=== PATIENT | male | born 1950 | race Caucasian/White ===

== ENCOUNTER 2024-07-22 06:14 | Observation (INO) | payer MEDICARE, BC, SELFPAY ==
[2024-07-22] VITALS (9 sets, daily range): BP systolic 104–133; BP diastolic 44–69; BMI 19.9
--- NOTE | 2024-07-22 04:44 | DOWNTIME ---
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 Downtime documentation of patient's care, including medication administrations, has been reconciled in the electronic record per guidelines. Refer to the
patient's paper chart under the miscellaneous tab to see printed paper medication records and downtime forms.
--- NOTE | 2024-07-22 04:50 | ED.GENMED ---
History of Present Illness
General
Chief Complaint: Breathing Problem
History of Present Illness
History of Present Illness:
TIME OF INITIAL ENCOUNTER: 2:15 AM
HPI: The patient comes in by ambulance from [facility]. He states he had some sort of aortic repair at another facility in April 2024. Prior to arrival, the patient started vomiting and then had shortness of breath. EMS was called and
found to be hypertensive and was in rapid atrial fibrillation. He was given 15 mg of Cardizem prior to arrival. He was reportedly hypoxic earlier and was placed on a nonrebreather prior to arrival.
EXAM:
GENERAL: The patient appears chronically ill
HEENT: Somewhat dry oral mucosa
CARDIOVASCULAR: No murmurs, tachycardic heart rate, regular rhythm, No chest wall tenderness
PULMONARY: Very mild respiratory distress, breath sounds are equally decreased
ABDOMEN: Soft with no peritoneal signs, no tenderness
NEUROLOGIC: There is decreased strength all extremities, no coordination deficits
PSYCHIATRIC: Mild cognitive impairment, reasonable insight and judgement
EXTREMITIES: Nontender, trace lower extremity edema, moves all extremities equally
SKIN: No rash, no lesions
NUMBER AND COMPLEXITY OF PROBLEMS ADDRESSED AT THE ENCOUNTER
� Chronic conditions affecting care: COPD
� Acute Exacerbation and/or Progression of Chronic Illness: This could be an acute exacerbation of chronic problem
� Differential Diagnosis includes: COPD exacerbation, viral syndrome, atrial fibrillation, pleural effusion
AMOUNT AND/OR COMPLEXITY OF DATA TO BE REVIEWED AND ANALYZED
� I performed an independent evaluation of and my interpretation is:
EKG: Sinus 103, normal axis
CT:
X-rays: I personally reviewed portable chest x-ray which shows chronic fibrotic changes with a small pleural effusion at the right base
Laboratory Studies: White count 16.2, hemoglobin 9.0, creatinine 0.6, TSH normal, lipase normal, troponin less than 0.012, BNP 326
Other:
� Review of other/old records: I reviewed the records from the nursing facility
� Clinical information was obtained by an independent historian: I spoke to EMS upon arrival
� Prescriptions/Medications Considered but not given: Considered antibiotics however the patient does not have any clear obvious signs of pneumonia at this time
� Further testing considered but not performed:
RISK OF COMPLICATIONS AND/OR MORBIDITY OR MORTALITY OF PATIENT MANAGEMENT
� Social determinants of health affecting care: Resides at [facility] for rehab
� Discussion with other providers: Hospitalist for admission
� Escalation of care including admission/observation vs risk of discharge considered: The patient was given IV Cardizem by EMS prior to arrival with heart rates in the 180s. Shortly after arrival heart rate in the low 100s. He
was taken off nonrebreather and room air sats are 96%. Patient was given a DuoNeb.
ANY OTHER UPDATES:
2:40 AM: After the patient was taken off oxygen and after he was on room air for a while, he did desat to about 88%. Will add Solu-Medrol.
4 AM: I spoke to family. Family tells me that the patient had been [place] for AAA repair then had immediate postop complications including bowel obstruction. He then transferred to [place] and only recently went to [place] about 5 days ago.
While at [place] he was treated for bowel obstruction and was found to have a small pleural effusion as well. Family states that he also was found to have fibrotic changes on chest imaging last admission
Phy Exam
Physical Exam
Physical Exam:
See HPI
Scores
Heart Failure Risk
Heart Failure Risk Score: Not Applicable
Course
Orders/Labs/Results
Orders:
Orders
07/22/24 02:30
Complete Blood Count/With Diff Routine
Comprehensive Metabolic Panel Routine
Lipase Routine
NT-proBNP Routine
TSH Reflex To Free T4 Routine
Troponin I Routine
*Critical Care Note
Total Time (30-74mins, 75-104mins- exclusive of procedures): Not Applicable
ED Attending Note
-
Portions of this chart may have been created with voice recognition software.� Occasional wrong word or��sound alike� substitutions may have occurred due to the inherent limitations of voice recognition software.
Discharge Plan
Departure
Referrals:
Christiano Dior MD [Family Provider] -
Discharge Date and Time
Print Language: SAMI
[2024-07-22 04:53] LABS: TSH Reflex To Free T4 4.69 uIU/ml (0.47-4.68)
[2024-07-22 04:54] LABS: ALT (SGPT) 20 U/L (0-50); AST (SGOT) 32 U/L (17-59); Alkaline Phosphatase 107 U/L (38-126); Blood Urea Nitrogen 15 mg/dl (9-20); Calcium 9.2 mg/dl (8.4-10.2); Carbon Dioxide 27 mmol/L (22-30); Chloride 96 mmol/L (98-107); Glucose 106 mg/dl (70-99); Lipase 32 U/L (23-300); NT-proBNP 326 pg/ml; Potassium 3.5 mmol/L (3.5-5.1); Sodium 138 mmol/L (135-145); Total Bilirubin 0.5 mg/dl (0.2-1.3); Troponin I < 0.012 ng/ml; eGFR > 60.00
[2024-07-22 04:58] LABS: % Basophils 0.5 % (0-2); % Eosinophils 0.6 % (0-6); % Immature Granulocytes 0.7 % (0-0.5); % Lymphocytes 8.1 % (20.5-51.1); % Monocytes 4.7 % (1.7-9.3); % Neutrophils 85.4 % (42.2-75.2); Absolute Basophils 0.1 10^3/uL (0-0.2); Absolute Eosinophils 0.1 10^3/uL (0-0.7); Absolute Immature Granulocytes 0.1 10^3/uL (0-0.05); Absolute Lymphocytes 1.3 10^3/uL (1.2-3.4); Absolute Monocytes 0.8 10^3/uL (0.1-0.6); Absolute Neutrophils 13.9 10^3/uL (1.4-6.5); Hematocrit 28.5 % (39.0-52.0); Mean Corp Hgb Conc. 31.6 g/dL (33.0-37.0); Mean Corpuscular Hgb 28.6 pg (27.0-31.0); Mean Corpuscular Volume 90.5 fL (80.0-94.0); Mean Platelet Volume 10.6 fL (7.4-10.4); Nucleated Red Blood Cells % 0 % (-); Platelet Count 297 10^3/uL (130-400); Red Blood Cell Count 3.15 10^6/uL (4.70-6.10); Red Cell Dist. Width 17.2 % (11.5-14.5); White Blood Cell Count 16.2 10^3/uL (4.8-10.8)
--- NOTE | 2024-07-22 05:03 | HPS.HSE ---
Family Physician
-
Family Physician: Christiano Dior
Chief Complaint
-
Shortness of breath
History of Present Illness
This is a 73-year-old male with past medical history of AAA and peripheral arterial disease, prior smoking and COPD not on home O2 will recently had a prolonged hospital course following surgery for AAA repair presents to the emergency department
from rehab for episode of shortness of breath and hypoxia to the low 80s complicated by supraventricular tachycardia thought to be A-fib at a rate of 180.
Patient was initially admitted to [facility] in May for AAA repair. He had a AAA repair with bilateral femoral endarterectomy. Following procedure the patient developed severe ileus and was hospitalized there for 5 weeks before
transferring to [place] for repair of the ileus. Patient had prolonged NG tube placement and received TPN. His course was complicated by vomiting and aspiration pneumonia. His hospital course was also complicated by episode of transient A-fib
RVR. Did resolve spontaneously and the patient was not placed on rate control medications or anticoagulation. He did end up getting a small bowel resection with reanastomosis. Was setting eventually transition to oral diet and was passing stool
and gas. He was discharged from [facility] about 6 days ago to rehab. He had no acute issues up until today. According to rehab the patient was vomiting then developed cough and shortness of breath. When EMS arrived the patient was
satting low 80% and was placed on nonrebreather. They found him to be in A-fib RVR at a rate of 180s. He was given 50 mg of Cardizem and he converted back to sinus rhythm upon arrival in ED.
In ED he was afebrile, oxygen saturation was 88% on room air and 95% on 2 L. Blood pressure was 90s over 70s. ECG with sinus tachycardia at [address] or T wave changes. Troponin was negative. BNP was 300. He had a white count of
16,000 hemoglobin 9 and plate count 297. He is BUN electrolytes and creatinine were within normal limits. Glucose was 106.
Chest x-ray shows chronic fibrotic changes and a small right pleural effusion. Patient received DuoNeb in the ED.
Medical History
Past Medical History
Past Medical History: Reports COPD
Additional Past Medical History:
PAD
AAA s/p repair
SBO
Past Surgical History: Reports Other (AAA open repair May 22 with bilateral femoral endarterectomy , small bowel resection and reanastomosis May 2024)
Social History
Tobacco: Former Smoker
Alcohol: None
Drug: None
Personal:
Living: Halfway
Employment: Retired
Family History
Family History: Not pertinent
Allergies / Home Medications
Allergies reflects when Allergies were last updated in [employer].
Home Medications with original date entered in [employer]
Allergy/Medication List:
Allergies
Allergy/AdvReac Type Severity Reaction Status Date / Time
No Known Allergies Allergy Unverified 07/22/24 04:51
Review of Systems
-
History Source: Patient and Family
Constitutional: Reports Fatigue
EENT: Reports No Symptoms
Respiratory: Reports No Symptoms
Cardiac: Reports No Symptoms
Abdomen/GI: Reports No Symptoms
: Reports No Symptoms
Musculoskeletal: Reports No Symptoms
Skin: Reports No Symptoms
Neurological: Reports No Symptoms
Endocrine: Reports No Symptoms
Hematologic/Lymphatic: Reports No Symptoms
Psych: Reports No Symptoms
Physical Exam
Vital Signs
Vital Signs
Pulse Resp Pulse Ox
90 22 99
07/22/24 04:49 07/22/24 04:49 07/22/24 05:02
Physical Exam
General: Well Developed, Well Nourished, No Apparent Distress and Comfortable
HEENT: NormoCephalic, Anicteric, Moist mucous membranes, Atraumatic and PERRLA
Respiratory: Clear and Decreased Breath Sounds
Cardiac: S1/S2 and Regular Rhythm
Breast: Deferred by me
GI: Soft, Non Tender, Non Distended and Normal Bowel Sounds
Rectal: Deferred by Provider
Genito-urinary: Deferred by me
Musculoskeletal: No Clubbing, No Cyanosis and No Edema
Skin: Warm
Neuro: AO x 3
Hematologic/Lymphatic: No Lymphadenopathy
Psych: Calm
Laboratory Results
-
07/22/24 02:30
07/22/24 02:30
Laboratory Results
Total Bilirubin 0.5 mg/dl (0.2-1.3) 07/22/24 02:30
AST 32 U/L (17-59) 07/22/24:30
ALT 20 U/L (0-50) 07/22/24 02:30
Alkaline Phosphatase 107 U/L (38-126) 07/22/24 02:30
Troponin I < 0.012 ng/ml 07/22/24 02:30
Lipase 32 U/L (23-300) 07/22/24 02:30
Data Reviewed
-
Diagnostic Radiology: Report Reviewed by me
Medical Tests (Nuc Med, Echo, EKG etc): Report Reviewed by me
Lab Data: Labs Reviewed by me
Old Records: Reviewed
Impression/Plan
-
IMPRESSION:
Patient with episode of vomiting, coughing sob and hypoxia associated with AFIB RVR to 180. No wheezing on my examination. Sinus at 103 on ECG w/o ischemia. Normal Trop and BNP and no volume overload. Suspect possible aspiration pneumonitis with
reactive airways in patient with known smoking related pulmonary fibrosis and COPD.
PLAN:
1. COPD exacerbation/aspiration pneumonitis - Rapid improvement and without current wheezing. Decreased bs on exam.
- admit to telemetry
- continue duonebs RTC for now and prn sob
- incentive spirometry
- hold off on steroids
- supplemental oxygen
- check procal, monitor for fever or worsening O2 requirements which may imply development of aspiration pneumonia
- no vomiting so far in ED, abdomen not tender. Will obtain abdominal xray to rule out obstruction.
2. AFIB RVR- Per EMS SVT, AFIB rate 180 chemically cardioverted with diltiazem 15mg iv, unsure duration. Patient had transient marcial-operative AFIB RVR. No AC or rate control as it was very brief.
- telemetry, trend enzymes
- echo
- tsh pending
- likely has paroxysmal afib, [id number] = 2. Candidate for AC or full dose aspirin, would consider Cardiology consult
- no indication for rate control currently
3. PAD
- continue aspirin and statin
4. h/o SBO and ileus
- senna, miralax daily for now
-prn supppository
DVT PPX - lovenox sq
Code status - DNR
[2024-07-22 05:20] LABS: Free T4 2.03 ng/dl (0.78-2.19)
--- NOTE | 2024-07-22 06:15 | DOWNTIME ---
There was a [employer] Line[employer] Downtime on 07/22/2024 from 0100 to 07/22/2024 at 0350. Downtime documentation of patient's care, including medication administrations, has been reconciled in the electronic record per guidelines. Refer to the
patient's paper chart under the miscellaneous tab to see printed paper medication records and downtime forms.
[2024-07-22] MEDS: DUONEB 3 ML INH ×4 (08:19→19:00)
[2024-07-22 08:58] LABS: Troponin I 0.015 ng/ml
[2024-07-22 09:03] LABS: Procalcitonin 0.12 ng/ml (0.0-0.25)
[2024-07-22] MEDS: MIRALAX 17 GRAMS PO (09:07)
[2024-07-22] MEDS: DILAUDID 0.5 MG IV (10:02)
--- NOTE | 2024-07-22 10:41 | W.PN.HOSP.TC ---
Today's Communication/Plan
-
pending cardio and CRS evaluation
NPO after identification of partial SBO
Assessment / Plan
Assessment / Plan
Patient is 73-year-old male with past medical history of AAA, PAD, CAD, COPD and history of smoking presented to emergency department from rehab for episode of shortness of breath after recently being admitted for AAA repair.
#COPD exacerbation versus aspiration pneumonitis
No wheezing on exam
Continue DuoNebs and nasal cannula oxygen support (currently on 2 L)
Continue to monitor for fevers. Procalcitonin negative, antibiotics not needed.
Incentive spirometry
Continue to hold steroids
speech eval pending appreciate input
#A-fib RVR versus SVT
Patient chemically cardioverted with diltiazem 15 mg IV in ED
Currently on telemetry, troponins pending
proBNP 326 patient likely has paroxysmal A-fib and is a candidate for anticoagulation.
cardiology consulted, appreciate input
#SBO
Xray shows small distal SBO
surgery consulted
patient NPO
#PAD
Continue aspirin and statin
#History of SBO and ileus
Continue senna and MiraLAX daily
As needed suppository
#DVT prophylaxis: Lovenox
CODE STATUS DNR
Anticipated Discharge: 24 - 48 hours
Subjective/Interval History
-
Date of Service: July 22, 2024
Patient is a 73-year-old male with past medical history of AAA, PAD, CAD, COPD and history of smoking presented to emergency department from rehab for episode of shortness of breath after recently being admitted for AAA repair. At time of admission
patient was experiencing hypoxia to low 80s with SVT at rate of 180. When EMS arrived to patient, he was vomiting and developed cough/shortness of breath. Patient was given mg of Cardizem after which he converted back to sinus rhythm. Patient is
satting 95% on 2 L. Chest x-ray in the ED showed chronic fibrotic changes and small right pleural effusion for which she received DuoNebs in the ED. Overnight he reported having some shortness of breath, but is comfortable with nasal cannula
oxygen supplementation.
Objective Data
-
Labs:
Laboratory Results
07/22/24
02:30
WBC 16.2 H
Hgb 9.0 L
Hct 28.5 L
Plt Count 297
Sodium 138
Potassium 3.5
Chloride 96 L
Carbon Dioxide 27
BUN 15
Creatinine 0.6 L
Glucose 106 H
Calcium 9.2
Total Bilirubin 0.5
AST 32
ALT 20
Alkaline Phosphatase 107
Vital Signs:
Vital Signs
Temp Pulse Resp BP Pulse Ox
97.5 F 87 20 104/44 97
07/22/24 07:00 07/22/24 08:20 07/22/24 07:00 07/22/24 07:00 07/22/24 08:20
Review of Systems
-
History Source: Patient
Constitutional: Reports Weakness
EENT: Reports No Symptoms Reported
Respiratory: Reports Cough and Trouble Breathing
Cardiac: Reports No Symptoms
Abdomen/GI: Reports No Symptoms
Musculoskeletal: Reports No Symptoms
Physical Exam
-
General: Well Developed, No Apparent Distress, Comfortable and Conversant
HEENT: Normocephalic and Atraumatic
Respiratory: Decreased Breath Sounds
Cardiac: Regular Rhythm and S1/S2
GI: Soft, Nontender, Nondistended and Normal Bowel Sounds
Musculoskeletal: No Clubbing, No Cyanosis, Edema, Right Lower Extrem and Edema, Left Lower Extrem
Skin: Warm and Dry
Neuro: AO x 3
Psych: Calm
Data Reviewed
-
Diagnostic Radiology: Report Reviewed by me and Discussed with Physician
Old Records: Reviewed
--- NOTE | 2024-07-22 12:07 | PTOTSP ---
ST Acute Care Evaluation Attempt
Chart reviewed. Pt currently NPO 2/2 suspected SBO. 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 Suspect any aspiration event is likely from his vomiting 2/2 SBO, similar to the events that transpired/reported
from his admission at [facility] and [facility].
--- NOTE | 2024-07-22 13:46 | CON.GS ---
Consultation
-
Requesting Provider: Blair
Performing Provider: Jere
Reason for Consultation: pSBO
Medical History
-
Chief Complaint: SOB
History of Present Illness:
73M admitted via ED for SOB. Per rehab staff he vomited and developed SOB afterwards. His recent medical history includes a month long stay at [facility] for AAA repair c/b post-op bowel obstruction. Ultimately he waas transferred to
[place] and underwent ex-lap with SBR. He was DC'ed to rehab from there 6 days ago and while at rehab developed SOB with hypoxia to the low 80s as well as SVT when rescue arrived. He was in NSR by the time he reached the ED. While at [place] he
reportedly had aspiration PNA, was on TPN with an NGT for some period of time. This am he reports feeling better, breathing easier. He denies n/v. He endorses passing flatus. He dneies abd pain.
Past Medical History
Past Medical History: Other (PAD, SBO)
Past Surgical History: Other (AAA open repair May 22 with bilateral femoral endarterectomy , ex-lap with small bowel resection May 2024)
Social History
Tobacco: Former Smoker
Alcohol: None
Drug: None
Personal:
Living: Fpc
Employment: Retired
Family History
Family History: Reviewed & Noncontributory
Allergies / Home Medications
Allergy/AdvReac Type Severity Reaction Status Date / Time
No Known Allergies Allergy Unverified 07/22/24 04:51
�Medication �Instructions �Recorded �Confirmed �Type
acetaminophen 325 mg tablet 650 mg PO Q6HPRN PRN mild pain 07/22/24 07/22/24 History
(Tylenol)
albuterol sulfate 2.5 mg/3 mL 2.5 mg inhalation R TID 07/22/24 07/22/24 History
(0.083 %) solution for nebulization
aspirin 81 mg tablet,delayed 81 mg PO DAILY 07/22/24 07/22/24 History
release
atorvastatin 10 mg tablet (Lipitor) 10 mg PO QPM 07/22/24 07/22/24 History
bisacodyl 10 mg rectal suppository 10 mg RI DAILYPRN PRN if no bm 07/22/24 07/22/24 History
(Dulcolax (bisacodyl)) aftr mom
magnesium hydroxide 400 mg/5 mL 2,400 mg PO [id number] PRN 07/22/24 07/22/24 History
oral suspension (Milk of Magnesia) constipation
pentoxifylline 400 mg 400 mg PO BID 07/22/24 07/22/24 History
tablet,extended release
polyethylene glycol 3350 17 gram 17 g PO DAILY 07/22/24 07/22/24 History
oral powder packet (Miralax)
sennosides 8.6 mg tablet (senna) 8.6 mg PO DAILY 07/22/24 07/22/24 History
sodium phosphates 19 gram-7 118 ml RI DAILYPRN PRN if no bm 07/22/24 07/22/24 History
gram/118 mL enema (Fleet Enema) aftr dulcolax
Review of Systems
-
A 10 point review of systems was completed, and was negative except as per HPI.
Physical Exam
Vital Signs
Temp Pulse Resp BP Pulse Ox
97.5 F 83 20 104/44 97
07/22/24 07:00 07/22/24 11:50 07/22/24 11:50 07/22/24 07:00 07/22/24 11:50
07/21/24 07/22/24 07/23/24
06:59 06:59 06:59
Actual Weight 61 kg
Body Mass Index (BMI) 19.9
Lab Results
07/22/24 02:30
07/22/24 02:30
WBC 16.2 10^3/uL (4.8-10.8) H 07/22/24 02:30
Hgb 9.0 g/dL (13.0-18.0) L 07/22/24 02:30
Hct 28.5 % (39.0-52.0) L 07/22/24 02:30
Plt Count 297 10^3/uL (130-400) 07/22/24 02:30
Abs Immat Gran (auto) 0.1 10^3/uL (0-0.05) H 07/22/24 02:30
Neutrophils % 85.4 % (42.2-75.2) H 07/22/24 02:30
Physical Exam
General: Well Developed, Well Nourished and No Apparent Distress
GI: Soft, Non Tender, Distended (mild-mod distention) and Incisions (well healed midline incision)
Skin: Warm and Dry
Neuro: AO x 3
Psych: Calm
Data Reviewed
-
Radiology: Image Personally Visualized and interpreted, Report Reviewed by me, Discussed with Physician, Discussed with Nurse and Discussed with Patient
Labs: Labs Reviewed by me
Assessment / Plan
-
73M with concern for pSBO and possible secondary aspiration pneumonitis, in setting of recent ex-lap with SBR for SBO following open repair AAA last month
AFVSS, clinically improving, passing flatus
WBC 16K
KUB with distended bowel loops and air/fluid levels
Plan:
Trial CLD
Cont IVF per Hospitalist
If he does not do well would consider PO contrast imaging vs transfer back to [place]
All other care as per primary team
GS will follow
--- NOTE | 2024-07-22 15:02 | WOUNDNOTE ---
WO RN note: Patient admitted with COPD vs aspiration.
See H&P for complete history.
PMH: COPD, A-fib, current SBO (currently NPO), PAD, recent AAA repair. Recent prolonged hospitalizations at [place] and [place].
Wound Location and type/assessment: Patient admitted with unstageable PI to sacrum and right heel. Patient reports that the wounds occurred during one of his recent hospital stays. At time of assessment, wound was firm and eschar intact. Some
drainage noted on old dressing. Periwound with superficial open areas. Right heel with unstageable PI with intact eschar. Patient reports that he can only tolerate laying on his back due to difficulty breathing. He has tried using air cushions under
sacrum but said it was uncomfortable and he could not tolerate. He also reports he could not tolerate air boot or fiber filled boot.
Appetite: Currently NPO. Reports recent weight loss and poor intake. BMI 19.
Pressure redistribution devices in place: Centrella Max Air, turning schedule as tolerated, keep heels off-loaded with pillow and air cushion under calves.
Plan: Dakins moistened gazue to sacrum. Apply Calazime to open areas around wound. Condom cath for moisture management (patient agreeable). Adhesive foam and off-loading to right heel. Patient declined to be off-loaded on side due to difficulty
breathing. TT Hospitalist and will defer to hospitalist for surgical consult. Patient has several co-morbidities and barriers to healing such as low BMI and poor intake (SB obstruction, possible aspiration), COPD, and inability to off-load due to
SOB. Wounds may worsen and new wounds may develop even with optimal care. Will confirm orders with hospitalist and update nurse.
Updated care plan and will follow as needed.
Note to case management of equipment requested for discharge:
Recommend follow up at wound care center upon discharge.
[2024-07-22 15:23] LABS: Troponin I 0.013 ng/ml
[2024-07-22] MEDS: TORADOL 15 MG IV ×2 (15:53→22:27)
[2024-07-22] MEDS: LOVENOX 40 MG SC (17:17)
[2024-07-22] MEDS: DAKIN'S SOLUTION 0.125% 1/4 STRENGTH 473 ML TOPICAL (22:25)
[2024-07-22] MEDS: ZOFRAN 4 MG IV (22:27)
[2024-07-23] VITALS (7 sets, daily range): BP systolic 115–153; BP diastolic 56–69; PULSE 86–88; O2SAT 94
[2024-07-23] MEDS: NSS 1000 IV (03:54)
[2024-07-23] MEDS: TORADOL 15 MG IV ×2 (06:11→18:13)
[2024-07-23 07:04] LABS: % Basophils 0.1 % (0-2); % Eosinophils 0.1 % (0-6); % Immature Granulocytes 0.8 % (0-0.5); % Lymphocytes 5.5 % (20.5-51.1); % Neutrophils 89.5 % (42.2-75.2); Absolute Immature Granulocytes 0.2 10^3/uL (0-0.05); Absolute Lymphocytes 1.1 10^3/uL (1.2-3.4); Absolute Monocytes 0.8 10^3/uL (0.1-0.6); Absolute Neutrophils 17.3 10^3/uL (1.4-6.5); Hematocrit 22.2 % (39.0-52.0); Hemoglobin 7.2 g/dL (13.0-18.0); Mean Corp Hgb Conc. 32.4 g/dL (33.0-37.0); Mean Corpuscular Hgb 28.8 pg (27.0-31.0); Mean Corpuscular Volume 88.8 fL (80.0-94.0); Mean Platelet Volume 9.9 fL (7.4-10.4); Nucleated Red Blood Cells % 0 % (-); Platelet Count 315 10^3/uL (130-400); Red Cell Dist. Width 16.9 % (11.5-14.5); White Blood Cell Count 19.3 10^3/uL (4.8-10.8)
--- NOTE | 2024-07-23 07:25 | W.PN.HOSP.TC ---
Today's Communication/Plan
-
pending transfer to [facility]
Assessment / Plan
Assessment / Plan
Patient is 73-year-old male with past medical history of AAA, PAD, CAD, COPD and history of smoking presented to emergency department from rehab for episode of shortness of breath after recently being admitted for AAA repair.
#COPD exacerbation versus aspiration pneumonitis
No wheezing on exam
Continue DuoNebs and nasal cannula oxygen support (currently on 2 L)
Continue to monitor for fevers. Procalcitonin negative, antibiotics not needed.
changed patient's pain regimen from Dilaudid to Toradol to prevent constipation
Incentive spirometry
Continue to hold steroids
#A-fib RVR versus SVT
Patient chemically cardioverted with diltiazem 15 mg IV in ED
Currently on telemetry, troponins peaked at 0.013
proBNP 326 patient likely has paroxysmal A-fib and is a candidate for anticoagulation.
cardiology consulted, appreciate input
#SBO
Xray shows small distal SBO
surgery consulted
CT AP pending today
pending transfer to [facility]
#PAD
Continue aspirin and statin
#History of SBO and ileus
Continue senna and MiraLAX daily
As needed suppository
#DVT prophylaxis: Lovenox
CODE STATUS DNR
Anticipated Discharge: 24 - 48 hours
Subjective/Interval History
-
Date of Service: July 23, 2024
Patient is a 73-year-old male with past medical history of AAA, PAD, CAD, COPD and history of smoking presented to emergency department from rehab for episode of shortness of breath after recently being admitted for AAA repair. Patient reports no
acute overnight events. He continues to complain of mild abdominal discomfort. He states that the oxygen supplementation and breathing treatments are helping him. He still has not had a bowel movement for 2 days. He had 1 episode of vomiting
overnight after drinking too much grapefruit juice at one time.
Objective Data
-
Labs:
Laboratory Results
07/23/24
06:17
WBC 19.3 H
Hgb 7.2 L
Hct 22.2 L
Plt Count 315
Sodium Pending
Potassium Pending
Chloride Pending
Carbon Dioxide Pending
BUN Pending
Creatinine Pending
Glucose Pending
Calcium Pending
Total Bilirubin Pending
AST Pending
ALT Pending
Alkaline Phosphatase Pending
Vital Signs:
Vital Signs
Temp Pulse Resp BP Pulse Ox
98.0 F 95 18 122/69 96
07/23/24 03:20 07/23/24 03:20 07/23/24 03:20 07/23/24 03:20 07/23/24 03:20
I&O
07/22/24 07/23/24 07/24/24
06:59 06:59 06:59
Intake Total 1020 / 1020
Output Total 550 / 550
Balance 470 / 470
Review of Systems
-
History Source: Patient
All other systems: Reviewed and negative
Constitutional: Reports Weakness
Respiratory: Reports No Symptoms
Cardiac: Reports No Symptoms
Abdomen/GI: Reports Pain
Physical Exam
-
General: Comfortable, Conversant and Cachectic
HEENT: Normocephalic, Atraumatic and Oxygen
Cardiac: S1/S2 and Irregular Rhythm
GI: Soft, Nondistended and Tender
Musculoskeletal: No Clubbing, No Cyanosis and No Edema
Skin: Warm and Dry
Neuro: AO x 3
Data Reviewed
-
Medical Tests (Nuc Med, Echo etc): Report Reviewed by me
Labs: Labs Reviewed by me
Old Records: Reviewed
[2024-07-23 07:30] LABS: ALT (SGPT) 17 U/L (0-50); AST (SGOT) 20 U/L (17-59); Albumin 2.6 g/dl (3.5-5.0); Alkaline Phosphatase 93 U/L (38-126); Blood Urea Nitrogen 21 mg/dl (9-20); Calcium 8.9 mg/dl (8.4-10.2); Carbon Dioxide 35 mmol/L (22-30); Chloride 98 mmol/L (98-107); Estimated Creatinine Clearance 81 ml/min; Glucose 126 mg/dl (70-99); Potassium 3.8 mmol/L (3.5-5.1); Sodium 139 mmol/L (135-145); Total Bilirubin 0.1 mg/dl (0.2-1.3); Total Protein 6.2 g/dl (6.3-8.2); eGFR > 60.00
[2024-07-23] MEDS: DUONEB 3 ML INH ×4 (08:06→18:16)
[2024-07-23] MEDS: DAKIN'S SOLUTION 0.125% 1/4 STRENGTH TOPICAL ×2 (09:08→20:22)
--- NOTE | 2024-07-23 10:05 | W.PN.GS2 ---
Today's Communication / Plan
-
`
Assessment / Plan
-
Assessment: 73M with concern for pSBO and possible secondary aspiration pneumonitis, in setting of recent lengthy hospitalization at [facility] as well as [facility] with reported ex-lap with SBR for SBO following open
repair AAA last month.
AFVSS
abd exam stable but worsening leukocytosis noted
Plan: CT a/p with oral and iv contrast
continue current care otherwise
updated hospitalist
Subjective Data
-
Date of Service: July 23, 2024
pt seen and examined
tolerating some liquids but states drank juice too quick overnight and vomited
passing flatus
no BM in few days
no new abdominal pains
Objective Data
-
Intake and Output
07/22/24 07/23/24 07/24/24
06:59 06:59 06:59
Intake Total 1020 / 1020
Output Total 550 / 550
Balance 470 / 470
Intake:
Oral fluids 1020 / 1020
Output:
Urine, Voided 550 / 550
Other:
How many times incontinent 1
SMALL amount urine
Vital Signs
Temp Pulse Resp BP Pulse Ox
97.1 F 81 19 129/59 95
07/23/24 07:00 07/23/24 07:00 07/23/24 07:00 07/23/24 07:00 07/23/24 07:00
Lab Results
07/23/24 06:17
07/23/24 06:17
Calcium 8.9 mg/dl (8.4-10.2) 07/23/24 06:17
Total Bilirubin 0.1 mg/dl (0.2-1.3) L 07/23/24 06:17
AST 20 U/L (17-59) 07/23/24 06:17
ALT 17 U/L (0-50) 07/23/24 06:17
Alkaline Phosphatase 93 U/L (38-126) 07/23/24 06:17
Total Protein 6.2 g/dl (6.3-8.2) L 07/23/24 06:17
Albumin 2.6 g/dl (3.5-5.0) L 07/23/24 06:17
Physical Exam
-
NAD AAOx3
resting comfortably in hospital bed
ABD: soft but a bit distended, nontender, laparotomy surgical scar healed
[2024-07-23] MEDS: OMNIPAQUE 50 ML PO (11:31)
[2024-07-23 15:34] LABS: Hematocrit 22.5 % (39.0-52.0); Hemoglobin 7.3 g/dL (13.0-18.0); Mean Corp Hgb Conc. 32.4 g/dL (33.0-37.0); Mean Corpuscular Hgb 29.1 pg (27.0-31.0); Mean Corpuscular Volume 89.6 fL (80.0-94.0); Mean Platelet Volume 9.2 fL (7.4-10.4); Platelet Count 309 10^3/uL (130-400); Red Blood Cell Count 2.51 10^6/uL (4.70-6.10); Red Cell Dist. Width 17.1 % (11.5-14.5); White Blood Cell Count 15.1 10^3/uL (4.8-10.8)
--- NOTE | 2024-07-23 17:37 | W.DCSUMMARY ---
Documented by User: Karthik Silverman DO, Resident 07/23/24 17:47
Discharge Summary
Discharge Data
Date of Admission: 07/22/24
Date of Discharge: 07/23/24
Total time spent discharging patient (in min): 45
-
Pending Results: No
Hospital Course
Discharging Physician : Fidencio Pinto
Disposition : [facility]
Primary care physician : Christiano Dior
Principal Discharge diagnosis : aspiration pneumonitis and potential bowel obstruction
Hospital Course : Patient is a 73-year-old male with past medical history of AAA, PAD, CAD, COPD and history of smoking presented to emergency department from rehab for episode of shortness of breath after recently being admitted for AAA repair at "[facility]. At time of admission patient was experiencing hypoxia to low 80s with SVT at rate of 180. When EMS arrived to patient, he was vomiting and developed cough/shortness of breath. Patient was given 15 mg of Cardizem after which he converted
back to sinus rhythm. Patient is saturating 95% on 2 L. Chest x-ray in the ED showed chronic fibrotic changes and small right pleural effusion for which she received DuoNebs in the ED. He was noted to have post operative bowel obstruction for
which he was transferred to [facility] and underwent ex-lap with SBR. He was discharged from [facility] to rehab, where he had the episode of SOB. Surgery was consulted and evauluation of contrast imaging could not rule out bowel obstruction. He
has not had a bowel movement since time of admission despite being on bowel regimen. Due to extensive medical history and recent procedures completed at [facility], the medical and surgical teams felt it safer for him to be transferred to "[facility] for management. Patient was accepted by Dr. Misa Adam in Med Surg. Patient is currently stable. Pending transfer at 9 PM on 07/23.
Important imaging findings :
Abdominal Xray: 07/22
IMPRESSION:
Findings suspicious for at least partial distal small bowel obstruction.
CT AP: 07/23
IMPRESSION:
Right lower lobe opacification compatible with subsegmental atelectasis and/or pneumonia.
Small left and tiny right pleural effusions. Left lower lobe subsegmental atelectasis.
Apparent recent abdominal aortic aneurysm repair.
Oral contrast seen in only dilated proximal small bowel. Mid to distal small bowel as well as proximal to mid large bowel nondilated without oral contrast. Sigmoid colon and rectum normal in caliber containing oral contrast. It is uncertain whether
this oral contrast seen in the sigmoid colon and rectum is the sequela from prior outside study. Right-sided colonic anastomosis noted. Cannot exclude mild partial proximal to mid small bowel obstruction. No gross abnormal focal fluid collection,
cannot be entirely excluded. Recommend obtaining recent outside CT Abdomen and Pelvis studies for comparison.
Discharge Plan
-
Patient Disposition: Other
Discharge Diagnosis/Procedures: aspiration pneumonitis and possible bowel obstruction
Condition: Fair
Diet: Other diet
Additional Diets: currently on clear liquid diet with c/f obstruction
Activity: As tolerated and No strenuous activity
Driving Restrictions: As prior to admission
Activity Restrictions/Additional Instructions:
Wound Care Instructions SACRAL WOUND- Clean with 1/4 strength Dakins and pack with Dakins moistened gauze. Apply Calazime over open areas surrounding wound. Cover with dry dressing such as silicone border foam or ABD. Change BID and PRN drainage.
BILATERAL HEELS- No sting barrier wipe and adhesive foam. Change every 3 days and PRN if loose.
Air surface
Keep heels off-loaded with pillow or air cushion under calves
Turning schedule (as tolerated)
Follow up at wound care center call for an appointment.
Referrals:
Christiano Dior MD [Family Provider] - in one to two weeks
Prescriptions:
Continued
sennosides [senna] 8.6 mg Tablet
8.6 mg PO DAILY
acetaminophen [Tylenol] 325 mg Tablet
650 mg PO Q6HPRN PRN (Reason: mild pain)
albuterol sulfate 2.5 mg /3 mL (0.083 %) Solution For Nebulization
2.5 mg INHALATION R TID
polyethylene glycol 3350 [Miralax] 17 gram Powder In Packet
17 g PO DAILY
atorvastatin [Lipitor] 10 mg Tablet
10 mg PO QPM
aspirin 81 mg Tablet,Delayed Release (Dr/Ec)
81 mg PO DAILY
pentoxifylline 400 mg Tablet Extended Release
400 mg PO BID
magnesium hydroxide [Milk of Magnesia] 400 mg/5 mL Suspension
2,400 mg PO [id number] PRN (Reason: constipation)
bisacodyl [Dulcolax (bisacodyl)] 10 mg Suppository
10 mg NH DAILYPRN PRN (Reason: if no bm aftr mom)
Fleet Enema 19-7 gram/118 mL Enema
118 ml NH DAILYPRN PRN (Reason: if no bm aftr dulcolax)
Discharge Orders:
Discharge Patient (As Directed); Ordered 07/23/24
Ordered By: Karthik Silverman
Discharge Date and Time
Print Language: LUXEMBOURGER

Documented by User: Fidencio Pinto DO 07/23/24 17:54
Discharge Summary
Discharge Data
Date of Admission: 07/22/24
Date of Discharge: 07/23/24
Discharge Plan
-
Patient Disposition: Other
Discharge Diagnosis/Procedures: aspiration pneumonitis and possible bowel obstruction
Condition: Fair
Diet: Other diet
Additional Diets: currently on clear liquid diet with c/f obstruction
Activity: As tolerated and No strenuous activity
Driving Restrictions: As prior to admission
Activity Restrictions/Additional Instructions:
Wound Care Instructions SACRAL WOUND- Clean with 1/4 strength Dakins and pack with Dakins moistened gauze. Apply Calazime over open areas surrounding wound. Cover with dry dressing such as silicone border foam or ABD. Change BID and PRN drainage.
BILATERAL HEELS- No sting barrier wipe and adhesive foam. Change every 3 days and PRN if loose.
Air surface
Keep heels off-loaded with pillow or air cushion under calves
Turning schedule (as tolerated)
Follow up at wound care center call for an appointment.
Referrals:
Christiano Dior MD [Family Provider] - in one to two weeks
Prescriptions:
Continued
sennosides [senna] 8.6 mg Tablet
8.6 mg PO DAILY
acetaminophen [Tylenol] 325 mg Tablet
650 mg PO Q6HPRN PRN (Reason: mild pain)
albuterol sulfate 2.5 mg /3 mL (0.083 %) Solution For Nebulization
2.5 mg INHALATION R TID
polyethylene glycol 3350 [Miralax] 17 gram Powder In Packet
17 g PO DAILY
atorvastatin [Lipitor] 10 mg Tablet
10 mg PO QPM
aspirin 81 mg Tablet,Delayed Release (Dr/Ec)
81 mg PO DAILY
pentoxifylline 400 mg Tablet Extended Release
400 mg PO BID
magnesium hydroxide [Milk of Magnesia] 400 mg/5 mL Suspension
2,400 mg PO [id number] PRN (Reason: constipation)
bisacodyl [Dulcolax (bisacodyl)] 10 mg Suppository
10 mg NH DAILYPRN PRN (Reason: if no bm aftr mom)
Fleet Enema 19-7 gram/118 mL Enema
118 ml NH DAILYPRN PRN (Reason: if no bm aftr dulcolax)
Discharge Orders:
Discharge Patient (As Directed); Ordered 07/23/24
Ordered By: Karthik Silverman
Discharge Date and Time
Print Language: LUXEMBOURGER
[2024-07-23] MEDS: ZOFRAN 4 MG IV (21:49)
== END 2024-07-23 22:44 | disposition short-term general hospital (02) ==
LOC: 4 WEST ACU 06:14
PROVIDERS: ADMITTING PHYSICIAN Internal Medicine; ATTENDING PHYSICIAN Internal Medicine; EMERGENCY PHYSICIAN Emergency Medicine; FAMILY PHYSICIAN Internal Medicine; OTHER PHYSICIAN Surgery
DX: J69.0 Pneumonitis due to inhalation of food and vomit (principal); R06.02 Shortness of breath; R11.10 Vomiting, unspecified; J44.9 Chronic obstructive pulmonary disease, unspecified; I11.9 Hypertensive heart disease without heart failure; I48.91 Unspecified atrial fibrillation; R09.02 Hypoxemia; D72.829 Elevated white blood cell count, unspecified; J98.11 Atelectasis; R06.89 Other abnormalities of breathing; G31.84 Mild cognitive impairment of uncertain or unknown etiology; J90 Pleural effusion, not elsewhere classified; I73.9 Peripheral vascular disease, unspecified; I47.10 Supraventricular tachycardia, unspecified; M85.80 Other specified disorders of bone density and structure, unspecified site; I70.0 Atherosclerosis of aorta; Z66 Do not resuscitate; Z87.19 Personal history of other diseases of the digestive system; Z86.79 Personal history of other diseases of the circulatory system; Z87.891 Personal history of nicotine dependence
CPT/HCPCS: 71045; 74019; 74177; 80053; 83690; 83880; 84145; 84439; 84443; 84484; 85025; 85027; 92526; 93005; 93306; 94640; 97163; 97167; 99285; 99406; G0378; Q9967